=== PATIENT | female | born 1990 | race Caucasian/White ===

== ENCOUNTER 2016-08-02 14:55 | Emergency (ER) | payer SELFPAY ==
[2016-08-02 15:15] VITALS: BP 112/77
--- NOTE | 2016-08-02 17:00 | ED ---
Lower Extremity - HPI Summary HPI Summary: The patient is a 26 year old female presenting to ED for complaint of atraumatic right knee pain x1-2 weeks. Reports a constant ache right know non- radiating worse with ambulation. Today while walking knee "gave out" causing patient to fall forward onto right knee with resulting abrasion. Denies clicking , locking, redness, swelling, rash, numbness, tingling, weakness. Denies past medical or surgical history. Family history of DM. SH: Current smoker. No alcohol or drugs. Works as engineering supplies sales. - History of Current Complaint Chief Complaint: EDExtremityLower Stated Complaint: FALL / RT KNEE INJURY Time Seen by Provider: 08/02/16 16:38 Pain Intensity: 5 - Allergies/Home Medications Allergies/Adverse Reactions: Allergies Allergy/AdvReac Type Severity Reaction Status Date / Time No Known Allergies Allergy Verified 11/02/15 14:23 PMH/Surg Hx/FS Hx/Imm Hx Endocrine/Hematology History: Denies: Hx Anticoagulant Therapy Respiratory History: Reports: Other Respiratory Problems/Disorders - exercise induced asthma Infectious Disease History: No Infectious Disease History: Reports: Hx of Known/Suspected MRSA Denies: Traveled Outside the [place] in Last 30 Days - Family History Known Family History: Positive: None Negative: Cardiac Disease - Social History Alcohol Use: None Substance Use Type: Reports: Marijuana Substance Use Comment - Amount & Last Used: occasional Smoking Status (MU): Light Every Day Tobacco Smoker Review of Systems Constitutional: Negative Positive: Arthralgia. Negative: Edema Positive: Other - abrasion. Negative: Rash, Bruising Neurological: Negative Negative: Weakness, Numbness All Other Systems Reviewed And Are Negative: Yes Physical Exam Triage Information Reviewed: Yes Vital Signs On Initial Exam: Initial Vitals Temp Pulse Resp BP Pulse Ox 98.2 F 73 20 112/77 100 08/02/16 15:12 08/02/16 15:12 08/02/16 15:12 08/02/16 15:12 08/02/16 15:12 Vital Signs Reviewed: Yes Appearance: Positive: Well-Appearing, No Pain Distress, Obese - overweight Skin: Positive: Warm, Skin Color Reflects Adequate Perfusion, Dry. Negative: Erythema @ Head/Face: Positive: Normal Head/Face Inspection Eyes: Positive: Other: - Anicteric ENT: Positive: Hearing grossly normal Neck: Positive: Supple Respiratory/Lung Sounds: Positive: Other - normal respirations; speaking in full sentences Cardiovascular: Positive: Normal - DP pulse 2+; regular rate. Negative: Leg Edema Left, Leg Edema Right Musculoskeletal: Positive: Limited @ - minimally, Pain @ - reported pain lateral and medial wall without reproducible tenderness; no edema or effusion; no erythema or warmth; negative anterior and posterior drawer; mild increased pain with medial stress no lateral or medial laxity. Neurological: Positive: Normal, Sensory/Motor Intact, Reflexes Intact - achilles 2+, NV Bundle Intact Distally Psychiatric: Positive: Normal AVPU Assessment: Alert Diagnostics - Vital Signs Vital Signs Temp Pulse Resp BP Pulse Ox 08/02/16 15:12 98.2 F 73 20 112/77 100 - Laboratory Lab Statement: Any lab studies that have been ordered have been reviewed, and results considered in the medical decision making process. Lower Extremity Course/Dx - Course Assessment/Plan: Presents for right knee pain. No significant deformity on exam. Xray negative for fracture or dislocation. Clinical impression of knee sprain. Placed in Alex Wrap. Given crutches. Advised on use of ibuprofen or tylenol prn pain. Given referral to ortho. Taken out of work for 5 days. - Diagnoses Provider Diagnoses: Right knee sprain Discharge - Discharge Plan Condition: Stable Disposition: HOME Patient Education Materials: Knee Sprain (ED) Referrals: Anna Clark MD [Medical Doctor] -
--- NOTE | 2016-08-02 17:17 | RAD ---
INDICATION: Right knee pain COMPARISON: None TECHNIQUE: AP, lateral, tunnel, and sunrise were obtained. FINDINGS: The bony structures, joint spaces, and soft tissues are normal for age. IMPRESSION: NO ACUTE BONY FINDINGS.
== END 2016-08-02 17:49 | disposition home or self-care (01) ==
LOC: ED 14:55
DX: S83.91XA Sprain of unspecified site of right knee, initial encounter (principal); Z72.0 Tobacco use; W19.XXXA Unspecified fall, initial encounter; Y92.9 Unspecified place or not applicable
CPT/HCPCS: 99282

== ENCOUNTER 2016-09-04 15:23 | Emergency (ER) | payer SELFPAY ==
[2016-09-04 15:26] VITALS: BP 108/64
--- NOTE | 2016-09-04 16:13 | ED ---
Throat Pain/Nasal Congestion - HPI Summary HPI Summary: Patient arrives with CC of upper right dental pain which has been present for over 1 week. She has experienced previous infections in this area before, but has not seen a dentist. She states she has an appt to receive health insurance tomorrow and will follow up with a dentist at that time. SHe notices no specific site of infection but states the right upper jaw is painful to touch. Pain does not radiate to ear or down the neck. She has had 2 previous extractions near the area of concern. Today, she is requesting abx and pain management. - History of Current Complaint Chief Complaint: EDDentalPain Time Seen by Provider: 09/04/16 15:41 Hx Obtained From: Patient Onset/Duration: Gradual Onset Severity: Moderate Related History: Smoking - Epiglottits Risk Factors Epiglottis Risk Factors: Negative - Allergies/Home Medications Allergies/Adverse Reactions: Allergies Allergy/AdvReac Type Severity Reaction Status Date / Time No Known Allergies Allergy Verified 11/02/15 14:23 PMH/Surg Hx/FS Hx/Imm Hx Previously Healthy: Yes Endocrine/Hematology History: Denies: Hx Anticoagulant Therapy Respiratory History: Reports: Other Respiratory Problems/Disorders - exercise induced asthma Infectious Disease History: No Infectious Disease History: Reports: Hx of Known/Suspected MRSA Denies: Traveled Outside the [place] in Last 30 Days - Family History Known Family History: Positive: None Negative: Cardiac Disease - Social History Occupation: Unemployed Lives: With Family Alcohol Use: None Hx Substance Use: Yes Substance Use Type: Reports: Marijuana Substance Use Comment - Amount & Last Used: occasional Hx Tobacco Use: Yes Smoking Status (MU): Light Every Day Tobacco Smoker Review of Systems Constitutional: Negative Eyes: Negative Positive: Dental Pain Cardiovascular: Negative Respiratory: Negative Skin: Negative Neurological: Negative Psychological: Normal All Other Systems Reviewed And Are Negative: Yes Physical Exam Triage Information Reviewed: Yes Vital Signs On Initial Exam: Initial Vitals Temp Pulse Resp BP Pulse Ox 97.1 F 80 20 108/64 100 09/04/16 15:24 09/04/16 15:24 09/04/16 15:24 09/04/16 15:24 09/04/16 15:24 Vital Signs Reviewed: Yes Appearance: Positive: Well-Appearing, No Pain Distress, Well-Nourished Skin: Positive: Warm, Skin Color Reflects Adequate Perfusion Eyes: Positive: EOMI, CHARITY ENT: Positive: Normal ENT inspection, Pharynx normal, TMs normal, Dental tenderness Dental: Positive: Percussion Tenderness @ - upper right jaw, Gross Decay/Caries @ - all, Dental Fracture @ - 2nd to last molar on right side, Abscess @ - white discoloration surrounding gums on upper right side Neck: Positive: Supple, Nontender, No Lymphadenopathy Respiratory/Lung Sounds: Positive: Clear to Auscultation, Breath Sounds Present Cardiovascular: Positive: Normal Musculoskeletal: Positive: Normal, Strength/ROM Intact Neurological: Positive: Normal, Sensory/Motor Intact, Alert, Oriented to Person Place, Time, Facial Symmetry, Speech Normal AVPU Assessment: Alert - Lori Coma Scale Best Eye Response: 4 - Spontaneous Best Motor Response: 6 - Obeys Commands Best Verbal Response: 5 - Oriented Diagnostics - Vital Signs Vital Signs Temp Pulse Resp BP Pulse Ox 09/04/16 15:24 97.1 F 80 20 108/64 100 - Laboratory Lab Statement: Any lab studies that have been ordered have been reviewed, and results considered in the medical decision making process. EENT Course/Dx - Course Course Of Treatment: No dental abscess or lesions seen over area of concern. White discoloration of gums at site of pain. No drainage from area. Several dental caries, cavities, crowding and broken teeth throughout. 2 extractions on back molars. Pain on palpation over mandible. No TMJ tenderness or trimus. Poor dental hygiene and outpatient dental care. Will treat for possible dental infection/abscess based on symptoms of pain and radiation to jaw and cheek. No allergies. Will treat with Pencillin VK. Patient to follow up immediately with dentist. - Differential Diagnoses Differential Diagnoses: Dental Abscess, Dental Caries, Fractured Tooth, Periodontic Abscess, Periodontic Disease, Post-Extraction Pain - Diagnoses Provider Diagnoses: Pain, dental Discharge - Discharge Plan Condition: Stable Disposition: HOME Prescriptions: Penicillin VK TAB* [Penicillin VK 250 mg Tab*] 500 mg PO QID #56 tab traMADol TAB* [Ultram*] 50 mg PO Q6HR PRN #8 tab MDD 4 PRN Reason: Pain Patient Education Materials: Dental Abscess (ED) Referrals: No Primary Care Phys,NOPCP [Primary Care Provider] - Additional Instructions: You have been diagnosed with dental pain with possible infection: Antibiotics as prescribed to you. Pencillin VK 4 times daily for 7 days. To minimize the potential for gastrointestinal intolerance, Penicillin should be taken at the start of a meal. If you have any questions about your medication, please contact us or ask your pharmacist. Salt water rinses several times per day will improve healing time. Ibuprofen 600mg three times daily with meals for discomfort. May use lollicaines over the area for comfort. Follow up with a dentist for routine care to prevent recurrence of infections. If fever, worsening pain or swelling develops, see your PCP, dentist or come back to the Emergency Department. Images - Images Dental: 1 - white discoloration of gums. no abscess noted. pain on palpation of right upper cheek. 3 - previous extraction
== END 2016-09-04 16:22 | disposition home or self-care (01) ==
LOC: ED 15:23
DX: K08.89 Other specified disorders of teeth and supporting structures (principal); F17.210 Nicotine dependence, cigarettes, uncomplicated
CPT/HCPCS: 99281

== ENCOUNTER 2016-11-02 10:29 | Emergency (ER) | payer SELFPAY ==
[2016-11-02] MEDS ORDERED: Ketorolac INJ* 60 MG/2 ML VIAL IM ONE (13:43)
--- NOTE | 2016-11-02 13:52 | ED ---
Throat Pain/Nasal Congestion - HPI Summary HPI Summary: Pt here w/ Rt upper dental pain - stabbing. Has fracture of tooth here and h/ o abscess. Tried ibuprofen which usually control her intermittent pain here however w/o relief this time - since this usually helps and is not today, suspects this is an abscess - has had this in the past and feels same. Denies fever, chills, drainage, foul taste in mouth, ear pain, neck pain, trouble breathing or swallowing. States she has never seen a dentist as she does not have insurance however plans to address this. - History of Current Complaint Chief Complaint: EDDentalPain Time Seen by Provider: 11/02/16 13:24 Hx Obtained From: Patient - Allergies/Home Medications Allergies/Adverse Reactions: Allergies Allergy/AdvReac Type Severity Reaction Status Date / Time No Known Allergies Allergy Verified 11/02/15 14:23 PMH/Surg Hx/FS Hx/Imm Hx Previously Healthy: Yes Endocrine/Hematology History: Denies: Hx Anticoagulant Therapy Respiratory History: Reports: Other Respiratory Problems/Disorders - exercise induced asthma EENT History: Reports: Other - poor dentition w/o professional dental care Infectious Disease History: No Infectious Disease History: Reports: Hx of Known/Suspected MRSA Denies: Traveled Outside the [place] in Last 30 Days - Family History Known Family History: Positive: None Negative: Cardiac Disease - Social History Occupation: Employed Full-time - assisted living care staff Lives: With Family Alcohol Use: None Hx Substance Use: Yes Substance Use Type: Reports: Marijuana Substance Use Comment - Amount & Last Used: occasional Hx Tobacco Use: Yes Smoking Status (MU): Light Every Day Tobacco Smoker Review of Systems Negative: Fever, Chills Negative: Photophobia, Blurred Vision, Diplopia Positive: Dental Pain - see HPI. Negative: Sore Throat, Ear Ache, Nasal Discharge Negative: Chest Pain Negative: Shortness Of Breath Negative: Vomiting, Nausea Positive: no symptoms reported Negative: Rash, Bruising Neurological: Negative Positive: Anxious - concerned about pain - had to leave work today All Other Systems Reviewed And Are Negative: Yes Physical Exam Triage Information Reviewed: Yes Vital Signs On Initial Exam: Initial Vitals Temp Pulse Resp BP Pulse Ox 97.1 F 68 18 112/65 100 11/02/16 10:35 11/02/16 10:35 11/02/16 10:35 11/02/16 10:35 11/02/16 10:35 Vital Signs Reviewed: Yes Appearance: Positive: Well-Appearing, Well-Nourished, Pain Distress - mild Skin: Positive: Warm, Dry - no erythema over Rt side of face/neck Head/Face: Positive: Normal Head/Face Inspection Eyes: Positive: Other: - strabisumus ENT: Positive: Normal ENT inspection, Hearing grossly normal, Pharynx normal, TMs normal. Negative: Nasal congestion, Nasal drainage, Tonsillar swelling, Tonsillar exudate Dental: Positive: Dental Fracture @ - #2 - TTP, gingival edema - no drainage Neck: Positive: Supple, Nontender Respiratory/Lung Sounds: Positive: Breath Sounds Present. Negative: Stridor Cardiovascular: Positive: Normal, RRR Musculoskeletal: Positive: Normal, Strength/ROM Intact Neurological: Positive: Normal, Sensory/Motor Intact, Alert, Oriented to Person Place, Time Psychiatric: Positive: Anxious Procedures - Procedure Summary Procedure Summary: dental block of #2 w/ bupivicaine 1cc - pt tolerated well and reports immediate pain relief - no complications Diagnostics - Vital Signs Vital Signs Temp Pulse Resp BP Pulse Ox 11/02/16 10:59 97.1 F 68 18 112/65 100 11/02/16 10:35 97.1 F 68 18 112/65 100 - Laboratory Lab Statement: Any lab studies that have been ordered have been reviewed, and results considered in the medical decision making process. Re-Evaluation - Re-Evaluation First Eval Change: Improved EENT Course/Dx - Course Course Of Treatment: Dental block provided in effort to break pain cycle - pain medications provided as well as anbx - strongly urged pt to consult w/ dentist - reviewed danger s/sx of when to return to ED - pt agrees w/ plan - Diagnoses Provider Diagnoses: Tooth fracture, Dental abscess Discharge - Discharge Plan Condition: Stable Disposition: HOME Prescriptions: Indomethacin CAP* [Indocin CAP*] 50 mg PO TID PRN #15 cap PRN Reason: Pain Penicillin VK TAB* [Penicillin VK 250 mg Tab*] 500 mg PO QID #40 tab traMADol TAB* [Ultram*] 50 mg PO Q6HR PRN #20 tab MDD 4 PRN Reason: Pain Patient Education Materials: Dental Abscess (ED) Forms: *Work Release Referrals: No Primary Care Phys,NOPCP [Primary Care Provider] - Additional Instructions: You appear to have a dental fracture with possible abscess. Complete antibiotics as directed. You may also try warm compresses on face and warm salt water oral rinses to encourage drainage. Take pain medications as directed and follow-up with dentist JASSON for repair of deformed teeth, possible drainage if needed. *If you develop fever, chills, facial swelling, trouble breathing or swallowing , return to ED
[2016-11-02 13:56] VITALS: BP 114/73
== END 2016-11-02 14:07 | disposition home or self-care (01) ==
LOC: ED 10:29
DX: K08.89 Other specified disorders of teeth and supporting structures (principal); K04.7 Periapical abscess without sinus; F17.210 Nicotine dependence, cigarettes, uncomplicated; F41.9 Anxiety disorder, unspecified
CPT/HCPCS: 96372; 99282; J1885

== ENCOUNTER → 2017-02-08 13:30 | Emergency (ER) | payer SELFPAY ==
[2017-02-08 13:44] VITALS: BP 122/75
== END | disposition left against medical advice (07) ==
LOC: ED 13:30
DX: R22.40 Localized swelling, mass and lump, unspecified lower limb (principal); Z53.21 Procedure and treatment not carried out due to patient leaving prior to being seen by health care provider

== ENCOUNTER 2017-03-05 08:57 | Emergency (ER) | payer SELFPAY ==
[2017-03-05] MEDS ORDERED: traMADol TAB* 50 MG PO ONE (10:12)
[2017-03-05] MEDS ORDERED: Clindamycin CAP* 150 MG PO ONE (10:17)
--- NOTE | 2017-03-05 10:23 | ED ---
Throat Pain/Nasal Congestion - HPI Summary HPI Summary: 26 female presents to ED with complaints of right upper dental pain and what she believes is an abscess for the past 2 days. States she gets these infections often, last one being ~ 3 months ago. She is waiting for insurance to get a dentist. Has multiple fractured teeth, with holes. No other complaints. Denies fever/chills. Has been taking aleve, ibuprofen and tylenol at different times to try and relieve the pain however has not had much relief. Denies difficulty swallowing and difficulty breathing. No discharge or erythema. Tender at right cheek. Denies being able to palpate an abscess. - History of Current Complaint Chief Complaint: EDDentalPain Time Seen by Provider: 03/05/17 09:05 Hx Obtained From: Patient Onset/Duration: Sudden Onset Severity: Mild Cough: None - Allergies/Home Medications Allergies/Adverse Reactions: Allergies Allergy/AdvReac Type Severity Reaction Status Date / Time Penicillins Allergy Vomiting Verified 03/05/17 09:10 PMH/Surg Hx/FS Hx/Imm Hx Endocrine/Hematology History: Denies: Hx Anticoagulant Therapy Cardiovascular History: Denies: Hx Hypertension Respiratory History: Reports: Other Respiratory Problems/Disorders - exercise induced asthma Denies: Hx Asthma - Surgical History Surgery Procedure, Year, and Place: n/a - Immunization History Immunizations Up to Date: Yes Infectious Disease History: No Infectious Disease History: Reports: Hx of Known/Suspected MRSA Denies: Traveled Outside the in Last 30 Days - Family History Known Family History: Positive: None Negative: Cardiac Disease - Social History Alcohol Use: Occasionally Hx Substance Use: Yes Substance Use Type: Reports: Marijuana Substance Use Comment - Amount & Last Used: occasional Hx Tobacco Use: Yes Smoking Status (MU): Light Every Day Tobacco Smoker Review of Systems Constitutional: Negative Positive: Dental Pain Cardiovascular: Negative Respiratory: Negative Skin: Negative Neurological: Negative All Other Systems Reviewed And Are Negative: Yes Physical Exam Triage Information Reviewed: Yes Vital Signs On Initial Exam: Initial Vitals Temp Pulse Resp BP Pulse Ox 97.4 F 75 16 119/85 98 03/05/17 09:02 03/05/17 09:02 03/05/17 09:02 03/05/17 09:02 03/05/17 09:02 Vital Signs Reviewed: Yes Appearance: Positive: Well-Appearing, No Pain Distress, Well-Nourished Skin: Positive: Warm, Skin Color Reflects Adequate Perfusion, Dry. Negative: Cold, Cyanosis @, Pale, Erythema @ Head/Face: Positive: Normal Head/Face Inspection. Negative: TMJ Tenderness Eyes: Positive: Conjunctiva Clear ENT: Positive: Hearing grossly normal, Pharynx normal, TMs normal. Negative: Tonsillar swelling, Tonsillar exudate Dental: Positive: Percussion Tenderness @ - over right maxillary area, Gross Decay/Caries @, Dental Fracture @, Abscess @ - right upper, fractures, infected , erythematous surrounding right upper molars, gum area, Other - no palpable abscess, no ludwigs angina Neck: Positive: Supple, Nontender, No Lymphadenopathy Respiratory/Lung Sounds: Positive: Clear to Auscultation, Breath Sounds Present. Negative: Rales, Rhonchi, Wheezes Cardiovascular: Positive: Normal, RRR, Pulses are Symmetrical in both Upper and Lower Extremities. Negative: Murmur, Rub Musculoskeletal: Positive: Normal, Strength/ROM Intact Neurological: Positive: Normal, Sensory/Motor Intact, Alert, Oriented to Person Place, Time Diagnostics - Vital Signs Vital Signs Temp Pulse Resp BP Pulse Ox 03/05/17 09:08 97.4 F 75 16 119/85 98 03/05/17 09:02 97.4 F 75 16 119/85 98 - Laboratory Lab Statement: Any lab studies that have been ordered have been reviewed, and results considered in the medical decision making process. EENT Course/Dx - Course Course Of Treatment: given pain management and antibiotic while in ED. Will continue at home, with ice and ibuprofen. follow up dentist. no concern for sepsis or any other complications. no emergent etiology. aware of worsening signs and symptoms. recommend swishing with salt water to cleanse and using topical numbing agents to also help with pain. normal vitals, afebrile. no palpable abscess - Differential Diagnoses Differential Diagnoses: Dental Abscess, Dental Caries, Fractured Tooth, TMJ Syndrome - Diagnoses Provider Diagnoses: Pain, dental, Dental abscess Discharge - Discharge Plan Condition: Stable Disposition: HOME Prescriptions: Clindamycin HCl [Clindamycin 150 MG CAP*] 300 mg PO QID #54 cap traMADol TAB* [Ultram*] 25 mg PO Q8H PRN #6 tab MDD 2 PRN Reason: Pain Patient Education Materials: Dental Abscess (ED) Referrals: No Primary Care Phys,NOPCP [Primary Care Provider] - [facility] [Outside] Additional Instructions: Take prescribed antibiotic for infection. Recommend taking probiotic pill or eating serbian yogurt in between doses to replenish normal luke. Ibuprofen for pain and inflammation. Tramadol for break through pain. Ice. Swish with salt water multiple times daily. Follow up with dentist. If symptoms worsen (fever/chills, increased pain, red, swelling) or new symptoms please seek medical attention promptly.
[2017-03-05 10:28] VITALS: BP 123/84
== END 2017-03-05 10:28 | disposition home or self-care (01) ==
LOC: ED 08:57
DX: K04.7 Periapical abscess without sinus (principal); Z72.0 Tobacco use
CPT/HCPCS: 99282; A9270-GY

== ENCOUNTER 2017-06-18 11:31 | Emergency (ER) | payer SELFPAY ==
[2017-06-18] MEDS ORDERED: Ibuprofen TAB* 600 MG PO ONE (11:51)
--- NOTE | 2017-06-18 14:49 | ED ---
Throat Pain/Nasal Congestion - HPI Summary HPI Summary: 27 female presents to ED with complaints of left and front upper dental pain and what she believes is an infection that began yesterday. States she gets these infections often, last one being ~ 3 months ago. She is waiting for insurance to get a dentist. Has multiple fractured teeth, with holes. No other complaints. Denies fever/chills. Has not taken any medication. Did remove a ingrown tooth that was loose, and had relief however these symptoms of pain and minor swelling began yesterday. Denies difficulty swallowing and difficulty breathing. No discharge or erythema. Tender above upper lip minimal edema. No fever/chills. Denies being able to palpate an abscess. - History of Current Complaint Chief Complaint: EDDentalPain Time Seen by Provider: 06/18/17 11:46 Hx Obtained From: Patient Onset/Duration: Sudden Onset, Lasting Days, Still Present, Worse Since Severity: Moderate - Allergies/Home Medications Allergies/Adverse Reactions: Allergies Allergy/AdvReac Type Severity Reaction Status Date / Time Penicillins Allergy Vomiting Verified 06/18/17 11:33 PMH/Surg Hx/FS Hx/Imm Hx Endocrine/Hematology History: Denies: Hx Anticoagulant Therapy Cardiovascular History: Denies: Hx Hypertension Respiratory History: Reports: Other Respiratory Problems/Disorders - exercise induced asthma Denies: Hx Asthma - Surgical History Surgery Procedure, Year, and Place: n/a - Immunization History Immunizations Up to Date: Yes Infectious Disease History: No Infectious Disease History: Reports: Hx of Known/Suspected MRSA Denies: Traveled Outside the [place] in Last 30 Days - Family History Known Family History: Positive: None Negative: Cardiac Disease - Social History Alcohol Use: None Hx Substance Use: Yes Substance Use Type: Reports: None Substance Use Comment - Amount & Last Used: occasional Hx Tobacco Use: Yes Smoking Status (MU): Light Every Day Tobacco Smoker Review of Systems Constitutional: Negative Positive: Dental Pain Cardiovascular: Negative Respiratory: Negative Skin: Negative All Other Systems Reviewed And Are Negative: Yes Physical Exam Triage Information Reviewed: Yes Vital Signs On Initial Exam: Initial Vitals Temp Pulse Resp BP Pulse Ox 97.4 F 73 20 145/100 100 06/18/17 11:33 06/18/17 11:33 06/18/17 11:33 06/18/17 11:33 06/18/17 11:33 slightly elevated BP, rechecked at [facility] and improved 128/91. Completion Of Physical Exam Limited Due To: Dementia Appearance: Positive: Well-Appearing, Well-Nourished, Pain Distress - mild, holding front of mouth Skin: Positive: Warm, Skin Color Reflects Adequate Perfusion, Dry. Negative: Cold, Numb, Cyanosis @, Pale, Erythema @ Head/Face: Positive: Normal Head/Face Inspection, Other - no significant edema noted of face Eyes: Positive: Conjunctiva Clear ENT: Positive: Hearing grossly normal, Pharynx normal, TMs normal, Uvula midline , Other - no sign of peritonsillar asbcess, airway patent Dental: Positive: Gross Decay/Caries @ - front tooth #8 with additional ingrown fractured tooth above, Dental Fracture @. Negative: Abscess @ - no palpable abscess or drainage noted, Cervical Lymphadenopathy Neck: Positive: Supple, Nontender, No Lymphadenopathy Respiratory/Lung Sounds: Positive: Clear to Auscultation, Breath Sounds Present. Negative: Rales, Rhonchi, Wheezes Cardiovascular: Positive: Normal, RRR, Pulses are Symmetrical in both Upper and Lower Extremities. Negative: Murmur, Rub Musculoskeletal: Positive: Normal, Strength/ROM Intact Neurological: Positive: Normal, Sensory/Motor Intact, Alert, Oriented to Person Place, Time Diagnostics - Vital Signs Vital Signs Temp Pulse Resp BP Pulse Ox 06/18/17 11:33 97.4 F 73 20 145/100 100 - Laboratory Lab Statement: Any lab studies that have been ordered have been reviewed, and results considered in the medical decision making process. EENT Course/Dx - Course Course Of Treatment: appeas to be suffering from dental infection/toothache. will treat with clindamycin as penicillin makes her sick. ibuprofen for pain and inflammation. orajel. follow up dentist. salt water gargles. normal vitals. no concern for drainable or palpable abscess at this time. no significant swelling and normal PE besides dental fracture and caries. Aware of worsening signs and symptoms. no other concerns at this time. good oral hygeine - Differential Diagnoses Differential Diagnoses: Dental Abscess, Dental Caries, Fractured Tooth - Diagnoses Provider Diagnoses: Pain, dental, Dental infection Discharge - Discharge Plan Condition: Stable Disposition: HOME Prescriptions: Clindamycin Cap(NF) [Clindamycin Cap 300 mg Cap(NF)] 300 mg PO TID #30 cap Ibuprofen TAB* [Motrin TAB* 600 MG] 600 mg PO Q6H PRN #30 tab PRN Reason: Pain Patient Education Materials: Dental Abscess (ED), Toothache (ED) Referrals: No Primary Care Phys,NOPCP [Primary Care Provider] - [facility] [Outside] Additional Instructions: Take prescribed medication as directed. Do not miss a dose. Apply orajel or topical anesthetic. Continue ice packs. Salt water swishes. Keep good oral hygiene. Ibuprofen for pain and inflammation, take with food, as needed. Follow up with dentist. Any new or worsening symptoms please seek medical attention immediately.
[2017-06-18 15:06] VITALS: BP 128/91
== END 2017-06-18 15:06 | disposition home or self-care (01) ==
LOC: ED 11:31
DX: K04.7 Periapical abscess without sinus (principal); K08.89 Other specified disorders of teeth and supporting structures; J45.990 Exercise induced bronchospasm; Z88.0 Allergy status to penicillin; F17.210 Nicotine dependence, cigarettes, uncomplicated
CPT/HCPCS: 99282; A9270-GY

== ENCOUNTER 2018-01-28 09:38 | Emergency (ER) | payer SELFPAY ==
[2018-01-28 12:12] LABS: EGFR Non-African American 107.4 (>60)
--- NOTE | 2018-01-28 12:36 | ED ---
Influenza-Like Illness - HPI Summary HPI Summary: This is [facility] documenting for attending Jimbo Guevara This is [facility] documenting for attending Jimbo Patiño MD. Pt is a 27 y/o F c/o flu- like Sx onset 4 days ago. Assoc Sx: CURRAN, N/V. Denies: CP, cough. - History of Current Complaint Chief Complaint: EDFluSymptoms - Allergy/Home Medications Allergies/Adverse Reactions: Allergies Allergy/AdvReac Type Severity Reaction Status Date / Time Penicillins Allergy Nausea And Verified 01/28/18 09:43 Vomiting PMH/Surg Hx/FS Hx/Imm Hx Endocrine/Hematology History: Denies: Hx Anticoagulant Therapy Cardiovascular History: Denies: Hx Hypertension Respiratory History: Reports: Other Respiratory Problems/Disorders - exercise induced asthma Denies: Hx Asthma - Surgical History Surgery Procedure, Year, and Place: n/a Infectious Disease History: No Infectious Disease History: Reports: Hx of Known/Suspected MRSA Denies: Traveled Outside the [place] in Last 30 Days - Family History Known Family History: Positive: None Negative: Cardiac Disease - Social History Alcohol Use: None Hx Substance Use: Yes Substance Use Type: Reports: None Substance Use Comment - Amount & Last Used: occasional Hx Tobacco Use: Yes Smoking Status (MU): Light Every Day Tobacco Smoker Physical Exam - Summary Physical Exam Summary: R sided CVA tenderness non toxic appearing Triage Information Reviewed: Yes Vital Signs On Initial Exam: Initial Vitals Temp Pulse Resp BP Pulse Ox 97.8 F 87 16 123/71 99 01/28/18 09:41 01/28/18 09:41 01/28/18 09:41 01/28/18 09:41 01/28/18 09:41 Vital Signs Reviewed: Yes Diagnostics - Vital Signs Vital Signs Temp Pulse Resp BP Pulse Ox 01/28/18 12:22 98 F 78 16 133/69 98 01/28/18 09:41 97.8 F 87 16 123/71 99 - Laboratory Lab Results: Lab Results 01/28/18 Range/Units 11:32 Sodium 135 (135-145) mmol/L Potassium Pending Chloride 106 (101-111) mmol/L Carbon Dioxide 20 L (22-32) mmol/L Anion Gap Pending BUN 12 (6-24) mg/dL Creatinine 0.66 (0.51-0.95) mg/dL Est GFR ( Amer) 130.0 (>60) Est GFR (Non-Af Amer) 107.4 (>60) BUN/Creatinine Ratio 18.2 (8-20) Glucose 78 (70-100) mg/dL Calcium 9.5 (8.6-10.3) mg/dL Total Bilirubin 0.50 (0.2-1.0) mg/dL AST Pending ALT 13 (7-52) U/L Alkaline Phosphatase 44 (34-104) U/L C-Reactive Protein 13.00 H (<8.01) mg/L Total Protein 8.0 (6.4-8.9) g/dL Albumin 4.6 (3.2-5.2) g/dL Globulin 3.4 (2-4) g/dL Albumin/Globulin Ratio 1.4 (1-3) Lipase 34 (11.0-82.0) U/L Result Diagrams: 01/28/18 11:32 Lab Statement: Any lab studies that have been ordered have been reviewed, and results considered in the medical decision making process. Discharge - Discharge Plan Referrals: No Primary Care Phys,NOPCP [Primary Care Provider] -
[2018-01-28 12:44] LABS: ABS Basophils 0.1 10^3/ul (0-0.2); ABS Eosinophils 0.5 10^3/ul (0-0.6); ABS Lymphocytes 2.3 10^3/ul (1.0-4.8); ABS Monocytes 0.8 10^3/ul (0-0.8); ABS Neutrophils 3.6 10^3/ul (1.5-7.7); ABS Nucleated RBC 0 10^3/ul; Eosinophil % 6.3 % (0-6); Hematocrit 43 % (35-47); Lymphocyte % 31.9 % (25-47); Mean Corpuscular HGB Conc 35 g/dl (31-36); Mean Corpuscular Hemoglobin 34 pg (27-31); Mean Corpuscular Volume 98 fL (80-97); Nucleated Red Blood Cells % 0.1; Platelet Count 223 10^3/ul (150-450); Red Blood Count 4.36 10^6/ul (4.00-5.40); Red Cell Distribution Width 13 % (10.5-15); White Blood Count 7.2 10^3/ul (3.5-10.8)
--- NOTE | 2018-01-28 12:51 | ED ---
Influenza-Like Illness - HPI Summary HPI Summary: 27 y/o female presents to the ED c/o constant rhinorrhea, N/V, chills for 4 days. Not aggravated or alleviated by anything. Associated sx: finger numbness. Pt also has a productive cough. Denies fevers/. This is scribe Ed Anamaria documenting for attending Trenton Hamilton MD - History of Current Complaint Chief Complaint: EDFluSymptoms Time Seen by Provider: 01/28/18 12:42 Hx Obtained From: Patient Onset/Duration: Lasting Days, Still Present Associated Signs & Symptoms: Cough, Vomiting - Allergy/Home Medications Allergies/Adverse Reactions: Allergies Allergy/AdvReac Type Severity Reaction Status Date / Time Penicillins Allergy Nausea And Verified 01/28/18 09:43 Vomiting PMH/Surg Hx/FS Hx/Imm Hx Previously Healthy: No Endocrine/Hematology History: Denies: Hx Anticoagulant Therapy Cardiovascular History: Denies: Hx Hypertension Respiratory History: Reports: Other Respiratory Problems/Disorders - exercise induced asthma Denies: Hx Asthma - Surgical History Surgery Procedure, Year, and Place: n/a Infectious Disease History: No Infectious Disease History: Reports: Hx of Known/Suspected MRSA Denies: Traveled Outside the [place] in Last 30 Days - Family History Known Family History: Negative: Cardiac Disease - Social History Alcohol Use: None Hx Substance Use: Yes Substance Use Type: Reports: None Substance Use Comment - Amount & Last Used: occasional Hx Tobacco Use: Yes Smoking Status (MU): Light Every Day Tobacco Smoker Review of Systems Positive: Chills. Negative: Fever Eyes: Negative Positive: Nasal Discharge Cardiovascular: Negative Positive: Cough Positive: Vomiting, Nausea Genitourinary: Negative Musculoskeletal: Negative Skin: Negative Neurological: Negative Psychological: Normal All Other Systems Reviewed And Are Negative: Yes Physical Exam - Summary Physical Exam Summary: VITAL SIGNS: Reviewed. GENERAL: Patient is a well-developed and nourished female who is lying comfortable in the stretcher. Patient is not in any acute respiratory distress. HEAD AND FACE: No signs of trauma. No ecchymosis, hematomas or skull depressions. No sinus tenderness. EYES: PERRLA, EOMI x 2, No injected conjunctiva, no nystagmus. EARS: Hearing grossly intact. Ear canals and tympanic membranes are within normal limits. MOUTH: Erythema in the throat. NECK: Supple, trachea is midline, no adenopathy, no JVD, no carotid bruit, no c- spine tenderness, neck with full ROM. CHEST: Symmetric, no tenderness at palpation LUNGS: Coarse breath sounds bilaterally. CVS: Regular rate and rhythm, S1 and S2 present, no murmurs or gallops appreciated. ABDOMEN: Soft, non-tender. No signs of distention. No rebound no guarding, and no masses palpated. Bowel sounds are normal. EXTREMITIES: FROM in all major joints, no edema, no cyanosis or clubbing. NEURO: Alert and oriented x 3. No acute neurological deficits. Speech is normal and follows commands. SKIN: Dry and warm Triage Information Reviewed: Yes Vital Signs On Initial Exam: Initial Vitals Temp Pulse Resp BP Pulse Ox 97.8 F 87 16 123/71 99 01/28/18 09:41 01/28/18 09:41 01/28/18 09:41 01/28/18 09:41 01/28/18 09:41 Vital Signs Reviewed: Yes Diagnostics - Vital Signs Vital Signs Temp Pulse Resp BP Pulse Ox 01/28/18 12:22 98 F 78 16 133/69 98 01/28/18 09:41 97.8 F 87 16 123/71 99 - Laboratory Lab Results: Lab Results 01/28/18 01/28/18 Range/Units 11:32 12:18 WBC 7.2 (3.5-10.8) 10^3/ul RBC 4.36 (4.00-5.40) 10^6/ul Hgb 15.0 (12.0-16.0) g/dl Hct 43 (35-47) % MCV 98 H (80-97) fL MCH 34 H (27-31) pg MCHC 35 (31-36) g/dl RDW 13 (10.5-15) % Plt Count 223 (150-450) 10^3/ul MPV 9.0 (7.4-10.4) um3 Neut % (Auto) 49.7 (38-83) % Lymph % (Auto) 31.9 (25-47) % Bladen % (Auto) 11.2 H (0-7) % Eos % (Auto) 6.3 H (0-6) % Baso % (Auto) 0.9 (0-2) % Absolute Neuts (auto) 3.6 (1.5-7.7) 10^3/ul Absolute Lymphs (auto) 2.3 (1.0-4.8) 10^3/ul Absolute Monos (auto) 0.8 (0-0.8) 10^3/ul Absolute Eos (auto) 0.5 (0-0.6) 10^3/ul Absolute Basos (auto) 0.1 (0-0.2) 10^3/ul Absolute Nucleated RBC 0 10^3/ul Nucleated RBC % 0.1 Sodium 135 (135-145) mmol/L Potassium Pending Chloride 106 (101-111) mmol/L Carbon Dioxide 20 L (22-32) mmol/L Anion Gap Pending BUN 12 (6-24) mg/dL Creatinine 0.66 (0.51-0.95) mg/dL Est GFR ( Amer) 130.0 (>60) Est GFR (Non-Af Amer) 107.4 (>60) BUN/Creatinine Ratio 18.2 (8-20) Glucose 78 (70-100) mg/dL Calcium 9.5 (8.6-10.3) mg/dL Total Bilirubin 0.50 (0.2-1.0) mg/dL AST Pending ALT 13 (7-52) U/L Alkaline Phosphatase 44 (34-104) U/L C-Reactive Protein 13.00 H (<8.01) mg/L Total Protein 8.0 (6.4-8.9) g/dL Albumin 4.6 (3.2-5.2) g/dL Globulin 3.4 (2-4) g/dL Albumin/Globulin Ratio 1.4 (1-3) Lipase 34 (11.0-82.0) U/L Result Diagrams: 01/28/18 12:18 01/28/18 11:32 Lab Statement: Any lab studies that have been ordered have been reviewed, and results considered in the medical decision making process. - Radiology CXR Xray Interpretation: No Acute Changes - NO ACTIVE CARDIOPULMONARY DISEASE Radiology Interpretation Completed By: Radiologist Flu Symptom Course/Dx - Course Assessment/Plan: This patient is a 27-year-old female who presents to the emergency room complaining the patient is having cough, body aches feeling that she has an upper respiratory tract infection for the last couple days. This results without any significant abnormality except for a CRP of 13. Chest x- ray impression: No acute cardiopulmonary pathology. I believe that the patient has a viral infection, therefore the patient was going to be given Flonase and Tessalon tablets for the cough. The patient will be discharged home with follow-up with primary care physician. I discussed all the findings and physical with the patient and she was advised to return to the emergency room if she develops any other symptoms including fever, headache, productive cough or any other symptoms. The patient understands and agrees. - Diagnoses Provider Diagnoses: Upper respiratory tract infection Discharge - Sign-Out/Discharge Documenting (check all that apply): Patient Departure - Discharge Plan Condition: Stable Disposition: HOME Prescriptions: Benzonatate CAP* [Tessalon 100 MG CAP*] 100 mg PO TID PRN #12 cap PRN Reason: Cough Fluticasone NASAL SPRAY 50MCG* [Flonase NASAL SPRAY 50MCG*] 2 spray BOTH NARES DAILY PRN #1 btl PRN Reason: nasal congestion Patient Education Materials: Upper Respiratory Infection (ED) Referrals: [facility] [place] [facility] [Outside] - 4 Days (PLEASE F/U IN 3-5 DAYS) Additional Instructions: RETURN TO THE ED FOR CHANGING/WORSENING SYMPTOMS
--- NOTE | 2018-01-28 13:36 | RAD ---
HISTORY: cough COMPARISONS: April 02, 2015 VIEWS: 4: Frontal dual-energy and lateral views of the chest. FINDINGS: CARDIOMEDIASTINAL SILHOUETTE: The cardiomediastinal silhouette is normal. MERLE: The merle are normal. PLEURA: The costophrenic angles are sharp. No pleural abnormalities are noted. LUNG PARENCHYMA: The lungs are clear. ABDOMEN: The upper abdomen is clear. There is no subphrenic gas. BONES AND SOFT TISSUES: No bone or soft tissue abnormalities are noted. OTHER: None. IMPRESSION: NO ACTIVE CARDIOPULMONARY DISEASE.
[2018-01-28 15:10] VITALS: BP 121/64
== END 2018-01-28 15:09 | disposition home or self-care (01) ==
LOC: ED 09:38
DX: J06.9 Acute upper respiratory infection, unspecified (principal); J34.89 Other specified disorders of nose and nasal sinuses; R11.2 Nausea with vomiting, unspecified; Z88.0 Allergy status to penicillin; F17.210 Nicotine dependence, cigarettes, uncomplicated
CPT/HCPCS: 36415; 71046; 80053; 83605; 83690; 85025; 86140; 87651; 99282

== ENCOUNTER 2019-03-30 13:22 | Emergency (ER) | payer SELFPAY ==
[2019-03-30] MEDS ORDERED: Albuterol/Ipratropium NEB.SOL* Albuterol 2.5 MG/Ipratropium 0.5 MG 3 ML INH ONE ×2 (14:27→15:48)
[2019-03-30] MEDS ORDERED: predniSONE TAB* 20 MG PO ONE (14:27)
--- NOTE | 2019-03-30 14:43 | ED ---
Respiratory - HPI Summary HPI Summary: Pt is a 29 y/o F presenting to the ED with a chief respiratory complaint initially onset a couple of days ago, but worsened last night. She reports SOB, productive cough with yellow phlegm, diaphoresis, chills, and CP with coughing. She denies nasal discharge, fever, erythema of eyes, sore throat, abdominal pain , N/V, dysuria, hematuria, myalgia, edema, rash, or dizziness. She has smoke exposure at home. - History of Current Complaint Chief Complaint: EDUpperRespComplaint Stated Complaint: SHORT OF BREATH, COUGH Time Seen by Provider: 03/30/19 14:20 Hx Obtained From: Patient Onset/Duration: Gradual Onset, Lasting Days, Still Present Timing: Constant Initial Severity: Mild Current Severity: Moderate Pain Intensity: 4 Character: Cough (Productive), Dyspnea at Rest Sputum Amount: Moderate Sputum Color: Yellow Aggravating Factor(s): Nothing Alleviating Factor(s): Nothing Associated Signs and Symptoms: SOB, Chest Pain with Cough, Chills, Diaphoresis - Allergy/Home Medications Allergies/Adverse Reactions: Allergies Allergy/AdvReac Type Severity Reaction Status Date / Time Penicillins Allergy Nausea And Verified 03/30/19 13:29 Vomiting PMH/Surg Hx/FS Hx/Imm Hx Previously Healthy: Yes Endocrine/Hematology History: Denies: Hx Anticoagulant Therapy Cardiovascular History: Denies: Hx Hypertension Respiratory History: Reports: Other Respiratory Problems/Disorders - exercise induced asthma Denies: Hx Asthma - Surgical History Surgery Procedure, Year, and Place: n/a Infectious Disease History: No Infectious Disease History: Reports: Hx of Known/Suspected MRSA Denies: Traveled Outside the [place] in Last 30 Days - Family History Known Family History: Negative: Cardiac Disease - Social History Alcohol Use: None Hx Substance Use: Yes Substance Use Type: Reports: None Substance Use Comment - Amount & Last Used: occasional Hx Tobacco Use: Yes Smoking Status (MU): Heavy Every Day Tobacco Smoker Review of Systems Positive: Chills, Skin Diaphoresis. Negative: Fever Negative: Erythema Negative: Sore Throat, Nasal Discharge Positive: Chest Pain Positive: Shortness Of Breath, Cough Negative: Abdominal Pain, Vomiting, Nausea Negative: dysuria, hematuria Negative: Myalgia, Edema Negative: Rash Neurological: Negative - dizziness All Other Systems Reviewed And Are Negative: Yes Physical Exam - Summary Physical Exam Summary: Constitutional: Well-developed, Well-nourished, Alert. (-) Distressed Skin: Warm, Dry HENT: Normocephalic; Atraumatic Eyes: Conjunctiva normal Neck: Musculoskeletal ROM normal neck. (-) JVD, (-) Stridor, (-) Tracheal deviation Cardio: Rhythm regular, rate normal, Heart sounds normal; Intact distal pulses; The pedal pulses are 2+ and symmetric. Radial pulses are 2+ and symmetric. (-) Murmur Pulmonary/Chest wall: Effort normal. Inspiratory and expiratory wheezes bilaterally Abd: Soft, (-) tenderness, (-) Distension, (-) Guarding, (-) Rebound Musculoskeletal: (-) Edema Lymph: (-) Cervical adenopathy Neuro: Alert, Oriented x3 Psych: Mood and affect Normal Triage Information Reviewed: Yes Vital Signs On Initial Exam: Initial Vitals Temp Pulse Resp BP Pulse Ox 97.3 F 76 20 120/89 95 03/30/19 13:26 03/30/19 13:26 03/30/19 13:26 03/30/19 13:26 03/30/19 13:26 Vital Signs Reviewed: Yes Diagnostics - Vital Signs Vital Signs Temp Pulse Resp BP Pulse Ox 03/30/19 13:26 97.3 F 76 20 120/89 95 - Laboratory Lab Statement: Any lab studies that have been ordered have been reviewed, and results considered in the medical decision making process. - Radiology CXR Radiology Interpretation Completed By: Radiologist Summary of Radiographic Findings: No active cardiopulmonary disease is noted. ED physician has reviewed this report. Re-Evaluation - Re-Evaluation First Eval Change: Improved - Oximetry is 92% on room air, maintaining while ambulating. Disposition - Course Course Of Treatment: Pt is a 29 y/o F presenting to the ED with a chief respiratory complaint initially onset a couple of days ago, but worsened last night. She reports SOB, productive cough with yellow phlegm, diaphoresis, chills , and CP with coughing. She denies nasal discharge, fever, erythema of eyes, sore throat, abdominal pain, N/V, dysuria, hematuria, myalgia, edema, rash, or dizziness. She has smoke exposure at home. On exam, the pt has inspiratory and expiratory wheezes bilaterally. CXR shows: No active cardiopulmonary disease is noted. Pt will be d/c'ed with dx of acute bronchitis and instructed to f/u with [facility] in 2-3 days. - Diagnoses Provider Diagnoses: Acute bronchitis Discharge ED - Sign-Out/Discharge Documenting (check all that apply): Patient Departure Patient Received Moderate/Deep Sedation with Procedure: No - Discharge Plan Condition: Stable Disposition: HOME Patient Education Materials: Acute Bronchitis (ED) Referrals: [facility] [Outside] Additional Instructions: Please follow up with [facility] in 2-3 days. Return to the emergency department with any new or worsening symptoms. - Attestation Statements Document Initiated by Scribe: Yes Documenting Scribe: Coco Graf Provider For Whom Scribe is Documenting (Include Credential): Jimbo Patiño MD. Scribe Attestation: Coco Langston, scribed for Jimbo Patiño MD. on 03/30/19 at 1613. Status of Scribe Document: Ready
[2019-03-30 16:26] VITALS: BP 142/81
== END 2019-03-30 16:28 | disposition home or self-care (01) ==
LOC: ED 13:22
DX: J20.9 Acute bronchitis, unspecified (principal); F17.200 Nicotine dependence, unspecified, uncomplicated; Z88.0 Allergy status to penicillin
CPT/HCPCS: 71045; 99282; A9270-GY; J7512